=== PATIENT | female | born 1945 | race Caucasian/White ===

== ENCOUNTER 2018-12-31 16:26 | Inpatient (IN) | payer MEDICARE, MEDICAID ==
[~2018-12-31] VITALS: Ht 157.5 cm; Wt 62.6 kg
[2018-12-31] MEDS ORDERED: FLUT16SP NS (20:33)
[2018-12-31] MEDS ORDERED: LISI2.5T2 PO (20:33)
[2018-12-31] MEDS ORDERED: ONDA4TAB11 PO (20:33)
[2018-12-31] MEDS ORDERED: PANT40TA4 PO (20:33)
[2018-12-31] MEDS ORDERED: CARV3.122 PO (20:33)
[2018-12-31] MEDS ORDERED: POTA10TA15 PO (20:33)
[2018-12-31] MEDS ORDERED: LEVA1.2528 IH (20:33)
[2018-12-31] MEDS ORDERED: AZIT500V13 IV (20:33)
[2018-12-31] MEDS ORDERED: ACET-2154 PO (20:33)
[2018-12-31] MEDS ORDERED: ASPI-1169 PO (20:33)
[2018-12-31] MEDS ORDERED: FURO20TA4 IVP (20:33)
[2018-12-31] MEDS ORDERED: ATOR40TA PO (20:33)
[2018-12-31] MEDS ORDERED: IPRA0.2S48 IH (20:33)
[2018-12-31] MEDS ORDERED: CEFT1VIA15 IV (20:33)
[2018-12-31] MEDS ORDERED: FURO40TA5 IVP (20:33)
[2018-12-31] MEDS ORDERED: LEVO125T8 PO (20:33)
[2018-12-31] MEDS ORDERED: ENOX40DI SQ (20:33)
--- NOTE | 2018-12-31 20:45 | NUR ---
Admitted a 73 years old female patient at 1900 from [facility], via gurney, accompanied with paramedicals. AAO x4. No acute distress or SOB was noted. On O2 1 L via NC. Able to make needs known. Patient is under the care of [facility]. The admitting dx: Acute respiratory failure, acute heart failure. Condition: fair. VS: BP: 114/49, MT: 75, RR: 18, T:98.0 F, Complained of pain on the left chest. FC, NKA, on cardiac diet. Physical assessments done, skin checked, oriented patient to the unit and educated her to use the call light. All admission work completed. MRSA swap taken and sent to the lab. All needs attended and met promptly. Dr. Alberto made aware of patient admission. Safety measures in place. Fall precaution observed. bed in low position, side rails up x2 far safety, bed in locked position, bed alarm on. Call light and all frequently used items within reach. Emphasize use of call light system, patient. verbalized clear understanding. Will continue to monitor and endorse to oncoming shift accordingly.
[2018-12-31 20:47] VITALS: BP 114/49
--- NOTE | 2018-12-31 21:05 | NUR ---
Contacted [facility] on-call doctor for medication reconciliation telephone read back. All medications should be continued. Pharmacy notified, but is about to close. Pharmacy will take care of medications in the morning. Will fax medications to the pharmacy.
[2018-12-31] MEDS ORDERED: ACETAMINOPHEN 325 MG TABLET PO PRN (22:00)
[2019-01-01 04:00] VITALS: BP 114/49
[2019-01-01] MEDS ORDERED: CEFTRIAXONE 1 G in IV DEXTROSE 5% 50 ML IV SCH (07:15)
[2019-01-01] MEDS ORDERED: LEVALBUTEROL HCL 1.25 MG/0.5 ML NEB NEB SCH ×2 (07:15)
[2019-01-01] MEDS ORDERED: ACETAMINOPHEN 325 MG TABLET PO PRN (07:15)
[2019-01-01] MEDS ORDERED: ONDANSETRON ODT 4 MG TAB.RAPDIS SL PRN (07:15)
[2019-01-01 07:35] VITALS: BP 111/50
[2019-01-01] MEDS ORDERED: IPRATROPIUM BROMIDE 0.5 MG/2.5 ML NEBU NEB SCH ×2 (07:35→13:30)
[2019-01-01] MEDS: LEVOTHYROXINE SODIUM 125 MCG TABLET PO SCH (07:41)
[2019-01-01] MEDS: CARVEDILOL 3.125 MG TABLET PO SCH ×2 (08:00→17:51)
[2019-01-01] MEDS: ASPIRIN 81 MG TAB.CHEW PO SCH (08:57)
[2019-01-01] MEDS: PANTOPRAZOLE SODIUM 40 MG TABLET.DR PO SCH (08:58)
[2019-01-01] MEDS ORDERED: FUROSEMIDE 20 MG TABLET JT SCH (09:00)
[2019-01-01] MEDS ORDERED: POTASSIUM CHLORIDE 20 MEQ TAB.PRT.SR PO SCH (09:00)
[2019-01-01] MEDS ORDERED: FUROSEMIDE 40 MG TABLET JT SCH (09:00)
[2019-01-01] MEDS ORDERED: ENOXAPARIN SODIUM 40 MG/0.4 ML DISP.SYRIN SQ SCH (09:00)
[2019-01-01] MEDS: FLUTICASONE PROP NASAL SPRAY 16 GM BOTTLE NS SCH (09:00)
[2019-01-01] MEDS ORDERED: AZITHROMYCIN 500 MG VIAL IV SCH (09:00)
[2019-01-01] MEDS: LISINOPRIL 5 MG TABLET PO SCH ×2 (09:00→20:26)
[2019-01-01] MEDS ORDERED: FUROSEMIDE 40 MG/4 ML VIAL IV SCH (09:45)
[2019-01-01] MEDS ORDERED: ONDANSETRON 4 MG/2 ML VIAL IV PRN ×2 (10:00→10:30)
[2019-01-01 10:01] LABS: BASOPHILS # (AUTO) 0.1 K/uL (0.0-8.0); BASOPHILS % (AUTO) 1.3 % (0.0-2.0); EOSINOPHILS # (AUTO) 0.2 K/uL (0.0-0.7); EOSINOPHILS % (AUTO) 3.2 % (0.0-7.0); HEMATOCRIT 34.9 % (31.2-41.9); HEMOGLOBIN 11.4 g/dL (10.9-14.3); LYMPHOCYTES # (AUTO) 0.9 K/uL (20.0-40.0); LYMPHOCYTES % (AUTO) 16.8 % (20.5-51.5); MEAN CORPUSCULAR HEMOGLOBIN 26.5 uug (24.7-32.8); MEAN CORPUSCULAR HGB CONC 33 g/dL (32.3-35.6); MEAN CORPUSCULAR VOLUME 81.2 fL (75.5-95.3); MONOCYTES # (AUTO) 0.5 K/uL (2.0-10.0); MONOCYTES % (AUTO) 8.5 % (0.0-11.0); NEUTROPHILS # (AUTO) 3.9 K/uL (1.8-8.9); NEUTROPHILS % (AUTO) 70.2 % (38.5-71.5); PLATELET COUNT (AUTO) 224 K/uL (179-408); RED BLOOD CELL COUNT(AUTO) 4.29 MIL/uL (3.63-4.92); WHITE BLOOD COUNT (AUTO) 5.6 K/uL (3.8-11.8)
--- NOTE | 2019-01-01 10:13 | NUR ---
Patient noted eating breakfast on the side of the bed, no complaints of pain at this time, no signs of distress, refused synthroid this morning, took AM medications without problems, call light in reach, bed locked and in lowest position
[2019-01-01 10:15] LABS: ALANINE AMINOTRANSFERASE 27 U/L (14-59); ALKALINE PHOSPHATASE 109 U/L (50-136); ASPARTATE AMINOTRANSFERASE 21 U/L (15-37); BILIRUBIN,TOTAL 0.3 mg/dL (0.2-1.0); CARBON DIOXIDE 25 mmol/L (21-32); CHLORIDE 102 mmol/L (98-107); GLUCOSE 151 mg/dL (74-106); POTASSIUM 4.6 mmol/L (3.5-5.1); UREA NITROGEN, BLOOD 16 mg/dL (7-18)
[2019-01-01] MEDS ORDERED: LEVA0.6320 NEB (10:20)
[2019-01-01] MEDS ORDERED: ONDA4TAB5 PO (10:21)
[2019-01-01] MEDS ORDERED: ONDA4VIA52 IV (10:26)
[2019-01-01] MEDS ORDERED: ONDANSETRON HCL 4 MG TABLET PO PRN ×2 (10:30→16:30)
[2019-01-01] MEDS ORDERED: LEVALBUTEROL HCL NEB 0.63 MG/3 ML NEBU NEB SCH (10:30)
[2019-01-01] MEDS: ENOXAPARIN SODIUM 30 MG/0.3 ML DISP.SYRIN SUBCUT SCH (11:14)
[2019-01-01] MEDS: CEFTRIAXONE 1 G in IV DEXTROSE 5% 50 ML IV SCH (11:36)
[2019-01-01] MEDS: ALBUTEROL SULFATE 2.5 MG/ 0.5 ML NEBU NEB SCH ×2 (11:49→20:03)
[2019-01-01] MEDS: IPRATROPIUM BROMIDE 0.5 MG/2.5 ML NEBU NEB SCH ×2 (11:50→20:03)
[2019-01-01] MEDS: AZITHROMYCIN IV 500 MG in IV DEXTROSE 5% 250 ML IV SCH (12:18)
[2019-01-01] MEDS ORDERED: ALBUTEROL SULFATE 2.5 MG/ 0.5 ML NEBU NEB SCH (13:30)
[2019-01-01 16:50] VITALS: BP 106/51
--- NOTE | 2019-01-01 19:30 | NUR ---
PATIENT ALERT AND ORIENTED X 4. FAMILY AT BEDSIDE. PATIENT REQUESTING 1930 DOSE OF BREATHING TREATMENT. REQUESTING TYLENOL FOR LEFT SIDES SORENESS. NO SOB AT THIS TIMES. SIDE RAILS UP BILATERALLY FOR SAFETY. CALL LIGHT AND FREQUENTLY USED ITEMS WITHIN REACH. WILL CONTINUE TO MONITOR.
[2019-01-01] MEDS: ATORVASTATIN 40 MG TABLET PO SCH (20:26)
[2019-01-01 20:57] VITALS: BP 134/66
[2019-01-02] MEDS: ALBUTEROL SULFATE 2.5 MG/ 0.5 ML NEBU NEB SCH ×4 (01:09→20:25)
[2019-01-02] MEDS: IPRATROPIUM BROMIDE 0.5 MG/2.5 ML NEBU NEB SCH ×4 (01:09→20:25)
[2019-01-02 05:15] VITALS: BP 105/54
[2019-01-02] MEDS: PANTOPRAZOLE SODIUM 40 MG TABLET.DR PO SCH (06:08)
[2019-01-02] MEDS: LEVOTHYROXINE SODIUM 125 MCG TABLET PO SCH (06:08)
[2019-01-02 07:35] LABS: BASOPHILS # (AUTO) 0.1 K/uL (0.0-8.0); EOSINOPHILS # (AUTO) 0.2 K/uL (0.0-0.7); EOSINOPHILS % (AUTO) 4.6 % (0.0-7.0); HEMOGLOBIN 10.6 g/dL (10.9-14.3); LYMPHOCYTES # (AUTO) 1.1 K/uL (20.0-40.0); LYMPHOCYTES % (AUTO) 22.3 % (20.5-51.5); MEAN CORPUSCULAR HEMOGLOBIN 26.9 uug (24.7-32.8); MEAN CORPUSCULAR HGB CONC 33 g/dL (32.3-35.6); MEAN CORPUSCULAR VOLUME 81.5 fL (75.5-95.3); MONOCYTES # (AUTO) 0.6 K/uL (2.0-10.0); MONOCYTES % (AUTO) 11.7 % (0.0-11.0); NEUTROPHILS # (AUTO) 2.8 K/uL (1.8-8.9); NEUTROPHILS % (AUTO) 59.4 % (38.5-71.5); PLATELET COUNT (AUTO) 226 K/uL (179-408); RED BLOOD CELL COUNT(AUTO) 3.93 MIL/uL (3.63-4.92); WHITE BLOOD COUNT (AUTO) 4.7 K/uL (3.8-11.8)
[2019-01-02 08:00] VITALS: BP 103/51
[2019-01-02] MEDS: CARVEDILOL 3.125 MG TABLET PO SCH ×2 (08:00→17:46)
--- NOTE | 2019-01-02 08:05 | NUR ---
Patient noted sitting in chair talking on the phone, no complaints of pain at this time, no signs of distress noted, call light in reach, will give breakfast and AM medications
[2019-01-02 08:49] LABS: ALANINE AMINOTRANSFERASE 27 U/L (14-59); ALKALINE PHOSPHATASE 99 U/L (50-136); ASPARTATE AMINOTRANSFERASE 19 U/L (15-37); BILIRUBIN,TOTAL 0.3 mg/dL (0.2-1.0); CARBON DIOXIDE 28 mmol/L (21-32); CHLORIDE 101 mmol/L (98-107); GLUCOSE 102 mg/dL (74-106); MAGNESIUM 2.2 mg/dL (1.8-2.4); POTASSIUM 4.7 mmol/L (3.5-5.1); TOTAL PROTEIN, SERUM 7.6 g/dL (6.4-8.2); UREA NITROGEN, BLOOD 18 mg/dL (7-18)
[2019-01-02] MEDS: LISINOPRIL 5 MG TABLET PO SCH ×2 (09:00→20:10)
[2019-01-02] MEDS: FLUTICASONE PROP NASAL SPRAY 16 GM BOTTLE NS SCH (09:00)
[2019-01-02] MEDS: FUROSEMIDE 40 MG TABLET PO SCH (10:07)
[2019-01-02] MEDS: ASPIRIN 81 MG TAB.CHEW PO SCH (10:07)
[2019-01-02] MEDS: CEFTRIAXONE 1 G in IV DEXTROSE 5% 50 ML IV SCH (10:07)
[2019-01-02] MEDS: ENOXAPARIN SODIUM 30 MG/0.3 ML DISP.SYRIN SUBCUT SCH (10:17)
[2019-01-02] MEDS: AZITHROMYCIN IV 500 MG in IV DEXTROSE 5% 250 ML IV SCH (11:21)
[2019-01-02 15:59] VITALS: BP 97/51
[2019-01-02] MEDS: ATORVASTATIN 40 MG TABLET PO SCH (20:09)
--- NOTE | 2019-01-02 20:49 | NUR ---
Received pt sitting on the chair at bedside and watching tv. AAO x4. No acute distress noted. Denies pain or discomfort. Due med given as ordered. Held Prinivil due to decreased BP. Pt received breathing treatment. Safety measures maintained. Call light and personal belongings within reach. Will continue to monitor.
[2019-01-02 21:01] VITALS: BP 112/52
[2019-01-03] MEDS: IPRATROPIUM BROMIDE 0.5 MG/2.5 ML NEBU NEB SCH ×4 (01:30→19:51)
[2019-01-03] MEDS: ALBUTEROL SULFATE 2.5 MG/ 0.5 ML NEBU NEB SCH ×4 (01:30→19:51)
[2019-01-03 04:00] VITALS: BP 112/60
[2019-01-03] MEDS: LEVOTHYROXINE SODIUM 125 MCG TABLET PO SCH (06:06)
[2019-01-03] MEDS: PANTOPRAZOLE SODIUM 40 MG TABLET.DR PO SCH (06:06)
[2019-01-03 08:00] VITALS: BP 116/59
[2019-01-03] MEDS: CARVEDILOL 3.125 MG TABLET PO SCH ×2 (08:00→18:00)
[2019-01-03] MEDS: FUROSEMIDE 40 MG TABLET PO SCH (08:46)
[2019-01-03] MEDS: FLUTICASONE PROP NASAL SPRAY 16 GM BOTTLE NS SCH (08:47)
[2019-01-03] MEDS: ASPIRIN 81 MG TAB.CHEW PO SCH (08:47)
[2019-01-03] MEDS: LISINOPRIL 5 MG TABLET PO SCH ×2 (08:48→21:00)
[2019-01-03] MEDS: ENOXAPARIN SODIUM 30 MG/0.3 ML DISP.SYRIN SUBCUT SCH (08:49)
--- NOTE | 2019-01-03 10:17 | NUR ---
INDIVIDUALIZED OVERALL PLAN OF CARE
[2019-01-03] MEDS: CEFTRIAXONE 1 G in IV DEXTROSE 5% 50 ML IV SCH (10:18)
[2019-01-03] MEDS: AZITHROMYCIN IV 500 MG in IV DEXTROSE 5% 250 ML IV SCH (11:43)
[2019-01-03 17:06] VITALS: BP 101/44
[2019-01-03 19:33] VITALS: BP 107/54
--- NOTE | 2019-01-03 19:35 | NUR ---
Patient received in bed, AAO x4. Able to make needs known.No acute distress or SOB noted. On room air. No complain of pain at this time. IV line on the right FA G 22 patent, no sign of inflammation. Physical assessment done. Safety measures observed. Fall precaution maintained. Bed in low position, side rails up x2 for safety, brake and alarm on. call light and personal belongings within reach. Continue to monitor.
[2019-01-03] MEDS: ATORVASTATIN 40 MG TABLET PO SCH (20:22)
--- NOTE | 2019-01-03 22:05 | NUR ---
Lisinopril 5 mg 1/2 tab @2100 was held because of low BP: 107/54, HR:79. Rechecked BP again @2145 still low: 108/56. Patient also preferred to not taking the med. Continue to monitor.
[2019-01-04] MEDS: IPRATROPIUM BROMIDE 0.5 MG/2.5 ML NEBU NEB SCH ×3 (01:30→13:28)
[2019-01-04] MEDS: ALBUTEROL SULFATE 2.5 MG/ 0.5 ML NEBU NEB SCH ×3 (01:30→13:28)
[2019-01-04 05:38] VITALS: BP 123/60
--- NOTE | 2019-01-04 05:43 | NUR ---
End of the shift note Patient was stable throughout the shift and has a good sleep last night. No acute distress or SOB noted. On room air. No Complain of pain. All due medications administered and well tolerated. IV line flushed, patent, no sign of inflammation. Physical assessment done. Safety measures observed. Fall precaution maintained. All needs attended promptly. Bed in low position, side rails up x2 for safety, brake and alarm on. Call light and personal belongings within reach. Continue to monitor and will endorse to the day shift nurse accordingly.
[2019-01-04] MEDS: PANTOPRAZOLE SODIUM 40 MG TABLET.DR PO SCH (06:15)
[2019-01-04] MEDS: LEVOTHYROXINE SODIUM 125 MCG TABLET PO SCH (06:15)
[2019-01-04] MEDS: CARVEDILOL 3.125 MG TABLET PO SCH (08:00)
[2019-01-04 08:08] VITALS: BP 87/57
[2019-01-04] MEDS: ENOXAPARIN SODIUM 30 MG/0.3 ML DISP.SYRIN SUBCUT SCH (08:12)
[2019-01-04 08:13] VITALS: BP 87/57
[2019-01-04] MEDS: FUROSEMIDE 40 MG TABLET PO SCH (08:13)
[2019-01-04] MEDS: LISINOPRIL 5 MG TABLET PO SCH (08:13)
[2019-01-04] MEDS: FLUTICASONE PROP NASAL SPRAY 16 GM BOTTLE NS SCH (08:14)
[2019-01-04] MEDS: ASPIRIN 81 MG TAB.CHEW PO SCH (08:14)
[2019-01-04] MEDS: CEFTRIAXONE 1 G in IV DEXTROSE 5% 50 ML IV SCH (10:59)
== END 2019-01-04 16:30 | disposition home health service (06) | DRG 280 ==
PROVIDERS: ADMIT Physical Medicine & Rehabilitation Pain Medicine; ATTEND Physical Medicine & Rehabilitation Pain Medicine
DX: I11.0 Hypertensive heart disease with heart failure (principal); J18.9 Pneumonia, unspecified organism; I21.A1 Myocardial infarction type 2; J96.00 Acute respiratory failure, unspecified whether with hypoxia or hypercapnia; I50.9 Heart failure, unspecified; I48.0 Paroxysmal atrial fibrillation; E03.9 Hypothyroidism, unspecified; J45.909 Unspecified asthma, uncomplicated; K21.9 Gastro-esophageal reflux disease without esophagitis; Z90.2 Acquired absence of lung [part of]; Z85.118 Personal history of other malignant neoplasm of bronchus and lung; E78.5 Hyperlipidemia, unspecified; Z85.3 Personal history of malignant neoplasm of breast
CPT/HCPCS: 36415; 71045; 83735; 84100; 85025; 94640; 94664; A4663; J0456; J0696; J1650; J1940; J3535; J3590; J7050; J7060